=== PATIENT | female | born 1975 | race Two or more races ===

== ENCOUNTER 2024-03-19 11:51 | Outpatient (OUT) | payer OTHER, SELFPAY ==
--- NOTE | 2024-03-19 12:12 | XR_ITS ---
The [address] [address] Patient Name: ANGELITA BRUNO MRN: [id number] date: 1975 Sex: F Assigned Patient Location: [facility] Current Patient Location: [facility] Accession/Order Number: [id number] Exam Date: 03/19/2024 12:22 Report Date: 03/19/2024 12:48 At the request of: MARE VERDUGO Procedure: XR knee SARAH 4V EXAMINATION: XR knee SARAH 4V HISTORY: Knee pain COMPARISON: No relevant comparison available. FINDINGS: RIGHT FINDINGS: BONES: No acute fracture or dislocation. Minimal degenerative changes with marginal osteophyte and medial compartment SOFT TISSUES: Negative. No visible soft tissue swelling. OTHER: Negative. LEFT FINDINGS: BONES: No acute fracture or dislocation. Minimal degenerative changes with marginal osteophyte and medial compartment SOFT TISSUES: Negative. No visible soft tissue swelling. OTHER: Negative. XR/XR knee SARAH 4V IMPRESSION: Mild bilateral medial compartment osteoarthritis Electronically authenticated by: AMEE CURIEL Date: 03/19/2024 12:48
== END 2024-03-19 11:52 | disposition home or self-care (01) ==
PROVIDERS: PCP Nurse Practitioner Family; Visit Provider Nurse Practitioner Family
DX: M25.561 Pain in right knee (principal); M25.562 Pain in left knee; M17.0 Bilateral primary osteoarthritis of knee
CPT/HCPCS: 73564